=== PATIENT | female | born 1955 | race Caucasian/White ===

== ENCOUNTER 2017-04-25 08:30 | Inpatient (IN) | payer OTHER ==
[2017-04-25 16:13] VITALS: BMI 22.1
[2017-05-01] MEDS ORDERED: Tranexamic Acid 1,000 MG/100 ML BAG ONE ×2 (10:44→15:53)
[2017-05-01] MEDS ORDERED: CEFAZOLIN/Water 2 GM/20 ML SYRINGE ONE (10:44)
[2017-05-01] MEDS ORDERED: Bupivacaine/Epinephrine 0.25% 30 ML VIAL ONE (11:59)
[2017-05-01] MEDS ORDERED: Neomycin-Polymyxin 1 ML AMP ONE (11:59)
[2017-05-01] MEDS ORDERED: Fentanyl 100 MCG/2 ML VIAL ONE ×4 (12:17→15:39)
[2017-05-01] MEDS ORDERED: Midazolam HCl 2 mg/2 ml Vial ONE (12:17)
[2017-05-01] MEDS ORDERED: Ondansetron HCl/PF 4 MG/2 ML Vial IVP PRN ×2 (13:24→15:00)
[2017-05-01] MEDS ORDERED: traMADol HCl 50 MG TAB PO PRN ×3 (13:24→15:00)
[2017-05-01] MEDS ORDERED: Promethazine HCl 25 MG/ML VIAL IM PRN ×2 (13:24→15:00)
[2017-05-01] MEDS ORDERED: Zolpidem Tartrate 5 MG TAB PO PRN (13:24)
[2017-05-01] MEDS ORDERED: Ropivacaine HCl/PF 250 ML in Premix Bag 1 BAG NERVE BLCK SCH (13:24)
[2017-05-01] MEDS ORDERED: HYDROcodone/Acetaminophen 5/325 mg Tablet PO PRN (13:24)
[2017-05-01] MEDS ORDERED: Ketorolac Tromethamine 30 MG/ML VIAL IVP PRN (13:24)
[2017-05-01] MEDS ORDERED: Fentanyl 100 MCG/2 ML VIAL IV PRN (13:25)
[2017-05-01] MEDS ORDERED: Acetaminophen 325 MG TAB PO PRN (15:00)
[2017-05-01] MEDS ORDERED: Morphine 4 MG/ML VIAL SLOW IVP PRN ×2 (15:00)
[2017-05-01] MEDS ORDERED: HYDROcodone/Acetaminophen 10/325 mg Tablet PO PRN (15:00)
[2017-05-01] MEDS ORDERED: diphenhydrAMINE 25 MG CAP PO PRN (15:00)
[2017-05-01] MEDS ORDERED: Acetaminophen 1,000 MG in Premix Bag 1 BAG IVPB SCH (15:00)
[2017-05-01] MEDS ORDERED: Tranexamic Acid 1,000 MG in Sodium Chloride 0.9% 100 ML IVPB SCH ×2 (15:00→15:15)
[2017-05-01] MEDS ORDERED: HYDROmorphone 0.5 MG/0.5 ML SYRINGE ONE (16:07)
--- NOTE | 2017-05-01 16:34 | RAD ---
TWO VIEWS LEFT KNEE 05/01/17 HISTORY: Postop total knee. FINDINGS: Postsurgical changes related to left total knee prosthesis are noted. No hardware complication seen. There is no fracture or dislocation. Subcutaneous edema and emphysema are seen throughout the knee. IMPRESSION: Postsurgical change related to recent left total knee replacement. POS: [facility]
[2017-05-01] MEDS ORDERED: Bupivacaine HCl 0.5%/Epinephrine 1:200,000/PF 30 ml Vial ONE (16:41)
[2017-05-01] MEDS ORDERED: Propofol 200 MG/20 ML VIAL ONE (17:02)
[2017-05-01] MEDS ORDERED: Dexamethasone 20 MG/5 ML VIAL ONE (17:02)
[2017-05-01] MEDS ORDERED: Ondansetron HCl/PF 4 MG/2 ML Vial ONE (17:02)
[2017-05-01] MEDS ORDERED: Lidocaine 1% PF 5 ML VIAL ONE (17:02)
[2017-05-01] MEDS ORDERED: ePHEDrine/0.9% NaCl/PF SYRINGE 50 mg/10 ml ONE (17:02)
[2017-05-01] MEDS: HYDROcodone/Acetaminophen 5/325 mg Tablet PO PRN ×2 (17:48→21:20)
[2017-05-01] MEDS: CEFAZOLIN/Water 2 GM/20 ML SYRINGE SLOW IVP SCH (18:47)
[2017-05-01] MEDS: Sodium Chloride 0.9% 1,000 ML IV SCH (18:54)
[2017-05-01] MEDS: Aspirin 325 MG TAB PO SCH (21:19)
[2017-05-01] MEDS: Ferrous Gluconate 324 MG TAB PO SCH (21:19)
[2017-05-01] MEDS: Senokot S 8.6-50 MG TAB PO SCH (21:19)
[2017-05-01] MEDS ORDERED: Ketorolac Tromethamine 30 MG/ML VIAL IVP SCH (22:00)
[2017-05-02] MEDS: Sodium Chloride 0.9% 1,000 ML IV SCH ×2 (01:45→11:40)
[2017-05-02] MEDS: CEFAZOLIN/Water 2 GM/20 ML SYRINGE SLOW IVP SCH (03:16)
[2017-05-02] MEDS: HYDROcodone/Acetaminophen 5/325 mg Tablet PO PRN ×2 (03:16→07:36)
[2017-05-02] MEDS ORDERED: Levothyroxine Sodium 75 MCG TAB PO SCH (06:00)
[2017-05-02 06:55] LABS: Hemoglobin 11.5 g/dL (12.0-16.0); Mean Corpuscular HGB CONC 32.6 g/dL (32.0-36.0); Mean Corpuscular Hemoglobin 32.1 pg (27.0-31.0); Mean Corpuscular Volume 98.5 fl (81.0-99.0); Mean Platelet Volume 8.2 fL (7.4-10.4); Platelet Count 171 thou/uL (130-400); RBC Distribution Width 10.9 % (11.5-14.5); Red Blood Cell (RBC) Count 3.58 mill/uL (4.20-5.40); White Blood Cell (WBC) Count 9.3 thou/uL (4.8-10.8)
[2017-05-02] MEDS: Senokot S 8.6-50 MG TAB PO SCH (07:36)
[2017-05-02] MEDS: Ferrous Gluconate 324 MG TAB PO SCH (07:36)
[2017-05-02] MEDS: Aspirin 325 MG TAB PO SCH (07:36)
[2017-05-02] MEDS ORDERED: Multivitamin W/ Minerals 1 TAB PO SCH (09:00)
[2017-05-02] MEDS: HYDROcodone/Acetaminophen 7.5/325 mg Tablet PO PRN ×4 (11:44→15:59)
[2017-05-02] MEDS ORDERED: Ropivacaine 0.2% 550 ML 550 ML NERVE BLCK SCH (11:53)
[2017-05-02 13:06] VITALS: BP 125/73; TEMP 98.3
--- NOTE | 2017-05-02 13:31 | OP ---
DATE OF PROCEDURE: 05/01/2017 PREOPERATIVE DIAGNOSIS: Osteoarthrosis of left knee. POSTOPERATIVE DIAGNOSIS: Osteoarthrosis of left knee. PROCEDURE: Left total knee arthroplasty. ANESTHESIA: General. SURGEON: Avinash Torres M.D. DRILLING ENGINEER: Rinku Salomon PA-C COMPLICATIONS: None. CONDITION: Good. ESTIMATED BLOOD LOSS: Minimal. DRAINS: None. TOURNIQUET: Per anesthesia. TECHNIQUE: Consent was obtained. The patient was taken to the operating room, placed in the supine position. After adequate general anesthesia had been achieved, the patient's left knee was examined. The patient had near full extension and flexion up to 140 degrees. There was significant valgus de formity with laxity and deformities passively correctable ligament exam is grossly stable, normal tra cking and alignment. The left knee was then positioned, prepped and draped in the usual sterile fash ion. Tourniquet placed on left upper thigh. Leg was elevated, exsanguinated, and tourniquet inflate d prior to incision. Standard midline vertical incision was made. It was taken down to subcutaneous tissue exposing extensor mechanism. Medial parapatellar arthrotomy was performed. Patella subluxed laterally. The patient had a moderate amount of clear joint fluid. There is an area of grade 2 and 3 changes on the medial condyle and patellofemoral. The central patella had grade 4 central changes along with posterolateral compartment. Using intramedullary guide, distal 5 degree valgus resection on the femur was performed using AP and epicondylar access, proper rotation and position and the siz e 4 cutting block was placed. Anterior, posterior, and chamfer cuts were completed for the size 4 ev olution femur. Tibia was then subluxed anteriorly and using external guide, appropriate resection wa s performed measuring from the medial compartment. The menisci and cruciate ligaments were then debr ided and then flexion and extension gaps were then checked with the spacer block. Good balancing was noted with some mild lateral release area. The patella was then measured approximately 7-8 mm resec tion performed and 32 mm patella was medialized. The trial components were then placed, 4 femur, 4 t ibia, and 32 patella and a 10 mm bearing surface was put through range of motion. The patient had fu ll flexion and extension, good balancing patellofemoral tracking and alignment. Tibial base plate wa s then marked and then prepared with a broach. All surfaces were irrigated copiously and the femur, tibia, and patella were cemented. Excess cement removed. The saw hardened with a 10 mm trial bearin g surface, again this was put through a range of motion and bearing surface was a 10 mm surface which was chosen. The size 10 bearing surface was then chosen and snap fit. It was copiously irrigated. Arthrotomy closed with #2 mersilene, #1 Vicryl, subcutaneous with 0 and 2-0 Vicryl, and skin with st aples. Sterile bulky dressing was applied and patient taken to recovery. Prognosis is good.
== END 2017-05-02 17:18 | disposition home or self-care (01) | DRG 470 ==
LOC: SURG A 05-01 09:57 → SJJU 05-01 15:55
PROVIDERS: ADMIT Orthopaedic Surgery; ATTEND Orthopaedic Surgery
PROC: 0SRD0J9 Replacement of Left Knee Joint with Synthetic Substitute, Cemented, Open Approach (ICD-10-PCS; principal; 2017-05-01)
PROC: 3E0T3BZ Introduction of Anesthetic Agent into Peripheral Nerves and Plexi, Percutaneous Approach (ICD-10-PCS; 2017-05-01)
DX: M17.12 Unilateral primary osteoarthritis, left knee (principal); E07.9 Disorder of thyroid, unspecified; M21.062 Valgus deformity, not elsewhere classified, left knee
CPT/HCPCS: 36415; 85027; A4306; C1713; C1776; G8978-GP-CL; G8979-GP-CI; J0670; J1100; J1170; J1885; J2001; J2250; J2405; J2704; J2795; J3010

== ENCOUNTER 2017-04-25 15:49 | Outpatient (CLI) | payer OTHER ==
[2017-04-25 17:04] LABS: Hemoglobin 12.9 g/dL (12.0-16.0); Mean Corpuscular HGB CONC 33.1 g/dL (32.0-36.0); Mean Corpuscular Hemoglobin 32.6 pg (27.0-31.0); Mean Corpuscular Volume 98.4 fl (81.0-99.0); Platelet Count 183 thou/uL (130-400); RBC Distribution Width 10.9 % (11.5-14.5); Red Blood Cell (RBC) Count 3.95 mill/uL (4.20-5.40); White Blood Cell (WBC) Count 5.7 thou/uL (4.8-10.8)
[2017-04-25 17:11] LABS: PTT 34.1 SEC (22.9-36.1); Prothrombin Time 13.7 SEC (12.0-14.7)
[2017-04-25 17:27] LABS: Anion Gap 13 mmol/L (10-20); BUN (Urea Nitrogen) 25 mg/dL (9.8-20.1); Calc. Creatinine Clearance 0 mL/min (70-130); Calcium 9.4 mg/dL (7.8-10.44); Carbon Dioxide 28 mmol/L (23-31); Chloride 103 mmol/L (98-107); Estimated GFR-MDRD 72; Glucose 100 mg/dL (80-115); Potassium 4.1 mmol/L (3.5-5.1); Sodium 140 mmol/L (136-145)
--- NOTE | 2017-05-04 19:30 | EKG ---
Test Reason : Blood Pressure : / mmHG Vent. Rate : 063 BPM Atrial Rate : 063 BPM P-R Int : 176 ms QRS Dur : 090 ms QT Int : 400 ms P-R-T Axes : 051 053 068 degrees QTc Int : 409 ms Normal sinus rhythm Cannot rule out Anterior infarct , age undetermined Abnormal ECG When compared with ECG of 14-DEC-2016 14:07, CA interval has decreased Confirmed by JASON CASTELLANOS (2) on 05/04/2017 7:29:30 PM Referred By: RUBEN Confirmed By:JASON CASTELLANOS
== END 2017-04-25 15:50 | disposition home or self-care (01) ==
LOC: LABBT 15:49
PROVIDERS: ATTEND Orthopaedic Surgery
DX: Z01.818 Encounter for other preprocedural examination (principal); M17.12 Unilateral primary osteoarthritis, left knee
CPT/HCPCS: 80048; 85027; 85610; 85730; 86850; 86900; 86901; 87081; 93005; 93010

== ENCOUNTER 2017-08-25 08:06 | Outpatient (CLI) | payer OTHER | END 2017-08-25 08:07 | disposition home or self-care (01) | LOC: BICMAMMO 08:06 | PROVIDERS: ATTEND Family Medicine | DX: Z12.31 Encounter for screening mammogram for malignant neoplasm of breast (principal) | CPT/HCPCS: 77063; 77067 ==